=== PATIENT | female | born 1960 | race Caucasian/White ===

== ENCOUNTER → 2017-08-27 19:38 | Outpatient (CLI) | payer OTHER, SELFPAY ==
[2017-08-27] MEDS: Zolpidem Tartrate 5 MG Tablet PO (21:10)
== END ==
PROVIDERS: Family Provider Physician Assistant; PCP Physician Assistant; Visit Provider Internal Medicine Critical Care Medicine
DX: G47.33 Obstructive sleep apnea (adult) (pediatric) (principal)
CPT/HCPCS: 95811

== ENCOUNTER → 2017-09-09 09:46 | Outpatient (CLI) | payer OTHER, SELFPAY ==
--- NOTE | 2017-09-09 15:42 | PFTCOMP ---
COMPLETE PULMONARY FUNCTION TEST INTERPRETATION Brief HPI: Patient is a 57 year old female, currently under the care of Dr. Chin, who presents to [facility] for complete pulmonary function tests secondary to diagnosis of COPD. Respiratory therapist reports good effort and reproducible results. Interpretation: Forced expiration spirometry shows a severe large airways obstructive ventilatory defect with an FEV1 of 36 % predicted. There is no significant bronchodilator response by ATS criteria. Spirograms are of good quality and plateau slowly, indicating slowly emptying areas of the lungs. The respiratory flow volume loop shows decreased expiratory flow rates at all lung volumes consistent with airway obstruction. Lung volumes by body plethysmography show a normal total lung capacity at 0.55 L, 97% predicted. FRC and RV are elevated out of proportion. Lung volume measurements are consistent with air-trapping. Diffusion capacity by carbon monoxide is decreased at 49 % predicted. The airway resistance is elevated. No previous pulmonary function tests were available for review. Impression: Irreversible severe large airways obstructive ventilatory defect with a symmetric reduction diffusing capacity resulting in air trapping.
--- NOTE | 2017-09-09 15:46 | PFTCOMP_ITS ---
COMPLETE PULMONARY FUNCTION TEST INTERPRETATION Brief HPI: Patient is a 57 year old female, currently under the care of Dr. Chin , who presents to [facility] for complete pulmonary function tests secondary to diagnosis of COPD. Respiratory therapist reports good effort and reproducible results. Interpretation: Forced expiration spirometry shows a severe large airways obstructive ventilatory defect with an FEV1 of 36 % predicted. There is no significant bronchodilator response by ATS criteria. Spirograms are of good quality and plateau slowly, indicating slowly emptying areas of the lungs. The respiratory flow volume loop shows decreased expiratory flow rates at all lung volumes consistent with airway obstruction. Lung volumes by body plethysmography show a normal total lung capacity at 0.55 L , 97% predicted. FRC and RV are elevated out of proportion. Lung volume measurements are consistent with air-trapping. Diffusion capacity by carbon monoxide is decreased at 49 % predicted. The airway resistance is elevated. No previous pulmonary function tests were available for review. Impression: Irreversible severe large airways obstructive ventilatory defect with a symmetric reduction diffusing capacity resulting in air trapping.
== END ==
PROVIDERS: Family Provider Physician Assistant; PCP Physician Assistant; Visit Provider Internal Medicine Critical Care Medicine
DX: J44.9 Chronic obstructive pulmonary disease, unspecified (principal)
CPT/HCPCS: 94060; 94726; 94729

== ENCOUNTER → 2017-09-24 12:53 | Outpatient (CLI) | payer OTHER, SELFPAY ==
[2017-09-24 14:06] VITALS: PULSE 105; PULSE 109; PULSE 112; PULSE 123; PULSE 92; PULSE 96; PULSE 97; PULSE 98; O2SAT 84; O2SAT 87; O2SAT 90; O2SAT 91; O2SAT 94; O2SAT 96
--- NOTE | 2017-09-24 14:33 | WT_ITS ---
PSN 6 Minute Walk Test - 6 Minute Walk Test 6 Minute Walk Test: 6 Minute Walk Test PSN:6-Minute Walk Test Start: 09/24/17 13: 17 Freq: Status: Active Protocol: RESP.6MINW Document 09/24/17 14:06 HG (Rec: 09/24/17 14:08 HG [id number]) 6 Minute Walk Test Date Performed 09/24/17 Time Performed 12:50 Height 5 ft 3 in Weight: 113.398 kg Weight in Pounds 250.[address]: Aleksandra Estevez Assistive device used: None Pre-test Oxygen Delivery Method Room Air Pulse Ox (%) 91 Pulse Rate (60-100 beats/min) 92 Dyspnea José Miguel Scale (0-10) 1 Exertion José Miguel Scale (6-20) 6 1st minute Oxygen Delivery Method Room Air Pulse Ox (%) 91 Pulse Rate (60-100 beats/min) 97 2nd minute Oxygen Delivery Method Room Air Pulse Ox (%) 84 Pulse Rate (60-100 beats/min) 123 H 3rd minute Oxygen Flow Rate (L/min) (L/min) 2 Oxygen Delivery Method Nasal Cannula Pulse Ox (%) 90 Pulse Rate (60-100 beats/min) 109 H 4th minute Oxygen Flow Rate (L/min) (L/min) 2 Oxygen Delivery Method Nasal Cannula Pulse Ox (%) 87 Pulse Rate (60-100 beats/min) 112 H 5th minute Oxygen Flow Rate (L/min) (L/min) 3 Oxygen Delivery Method Nasal Cannula Pulse Ox (%) 87 Pulse Rate (60-100 beats/min) 105 H 6th minute Oxygen Flow Rate (L/min) (L/min) 4 Oxygen Delivery Method Nasal Cannula Pulse Ox (%) 94 Pulse Rate (60-100 beats/min) 98 Post-test Oxygen Flow Rate (L/min) (L/min) 4 Oxygen Delivery Method Nasal Cannula Pulse Ox (%) 96 Pulse Rate (60-100 beats/min) 96 Dyspnea José Miguel Scale (0-10) 2 Exertion José Miguel Scale (6-20) 8 Full Laps Walked 14 Partial Lap, Number of Tiles Walked 0 Total Distance Walked (ft) 826 - Interpretation Interpretation: The patient was noted to be 91% on room air. The patient was then ambulated for 6 minutes and traveled a total of 826 feet. The patient did require 4 L nasal cannula to maintain appropriate saturations throughout testing. These findings are consistent with a respiratory limitation exercise tolerance. - Recommendations Recommendations: The patient requires no supplemental oxygen at rest, but should be using 4 L nasal cannula oxygen with any exertion.
== END ==
PROVIDERS: Family Provider Physician Assistant; PCP Physician Assistant; Visit Provider Nurse Practitioner Acute Care
DX: R09.02 Hypoxemia (principal)
CPT/HCPCS: 94618

== ENCOUNTER → 2017-10-28 12:17 | Outpatient (CLI) | payer OTHER, SELFPAY ==
[2017-10-28 12:57] VITALS: PULSE 108; PULSE 109; PULSE 117; PULSE 120; PULSE 79; PULSE 84; PULSE 90; PULSE 96; O2SAT 84; O2SAT 86; O2SAT 87; O2SAT 90; O2SAT 94; O2SAT 99
--- NOTE | 2017-10-28 13:03 | CPS ---
PATIENT ARRIVED ON 4LPM OXYGEN. PLACED ON ROOM AIR AND RESTED PRIOR TO BEGINNING TEST. AT 2MIN ON RA, SPO2 84%, INCREASED TO 2LPM, REST TAKEN AT 4 MIN ON 2LPM, SPO2 87%, INCREASED TO 3LPM JUST PRIOR TO 6 MIN ON 3LPM, SPO2 86%. REST TAKEN, INCREASED TO 4LPM, SPO2 INCREASED TO 94% WITH 2 MORE LAPS WALKED.
--- NOTE | 2017-10-29 11:02 | WT_ITS ---
PSN 6 Minute Walk Test - 6 Minute Walk Test 6 Minute Walk Test: 6 Minute Walk Test PSN:6-Minute Walk Test Start: 10/28/17 12: 57 Freq: Status: Active Protocol: RESP.6MINW Document 10/28/17 12:57 [facility] (Rec: 10/28/17 13:07 [facility] [id number]) 6 Minute Walk Test Date Performed 10/28/17 Time Performed 12:30 Height 5 ft 3 in Weight: 240 lb Weight in Pounds 240.[address]: Aleksandra Estevez Assistive device used: None Pre-test Oxygen Delivery Method Room Air Pulse Ox (%) 94 Pulse Rate (60-100 beats/min) 84 Dyspnea José Miguel Scale (0-10) 0 1st minute Oxygen Delivery Method Room Air Pulse Ox (%) 90 Pulse Rate (60-100 beats/min) 90 Dyspnea José Miguel Scale (0-10) 1 2nd minute Oxygen Delivery Method Room Air Pulse Ox (%) 84 Pulse Rate (60-100 beats/min) 96 Dyspnea José Miguel Scale (0-10) 3 Number of Rests Taken 1 Reported Symptoms Increased Work of Breathing 3rd minute Oxygen Flow Rate (L/min) (L/min) 2 Oxygen Delivery Method Nasal Cannula Pulse Ox (%) 90 Pulse Rate (60-100 beats/min) 108 H Dyspnea José Miguel Scale (0-10) 2 4th minute Oxygen Flow Rate (L/min) (L/min) 2 Oxygen Delivery Method Nasal Cannula Pulse Ox (%) 87 Pulse Rate (60-100 beats/min) 109 H Dyspnea José Miguel Scale (0-10) 2 5th minute Oxygen Flow Rate (L/min) (L/min) 3 Oxygen Delivery Method Nasal Cannula Pulse Ox (%) 90 Pulse Rate (60-100 beats/min) 117 H Dyspnea José Miguel Scale (0-10) 3 Reported Symptoms Increased Work of Breathing 6th minute Oxygen Flow Rate (L/min) (L/min) 3 Oxygen Delivery Method Nasal Cannula Pulse Ox (%) 86 Pulse Rate (60-100 beats/min) 120 H Dyspnea José Miguel Scale (0-10) 3 Number of Rests Taken 1 Reported Symptoms Increased Work of Breathing Post-test Oxygen Flow Rate (L/min) (L/min) 4 Oxygen Delivery Method Nasal Cannula Pulse Ox (%) 99 Pulse Rate (60-100 beats/min) 79 Dyspnea José Miguel Scale (0-10) 0 Full Laps Walked 13 Partial Lap, Number of Tiles Walked 51 Total Distance Walked (ft) 818 10/28/17 13:03 Cardiopulmonary Services by Lis Carmona PATIENT ARRIVED ON 4LPM OXYGEN. PLACED ON ROOM AIR AND RESTED PRIOR TO BEGINNING TEST. AT 2MIN ON RA, SPO2 84%, INCREASED TO 2LPM, REST TAKEN AT 4 MIN ON 2LPM, SPO2 87%, INCREASED TO 3LPM JUST PRIOR TO 6 MIN ON 3LPM, SPO2 86%. REST TAKEN, INCREASED TO 4LPM, SPO2 INCREASED TO 94% WITH 2 MORE LAPS WALKED. Initialized on 10/28/17 13:03 - END OF NOTE - Interpretation Interpretation: The patient ambulated 818 feet over the course of 6 minutes beginning on room air without assistive devices or breaks. Pretesting oxygen saturation was noted to be 94%. Throughout testing, the patient desaturated a number of times to less than 88%. The patient was placed initially on 2 L/min of supplemental oxygen, which required an upward titration to 4 L/min to maintain oxygen saturations at or above 88% throughout the remainder of the test. The patient did develop physiologic tachycardia with exertion. - Recommendations Recommendations: There is no need for supplemental oxygen at rest. However, 4 L/min of supplemental oxygen should be utilized with exertion.
== END ==
PROVIDERS: Family Provider Physician Assistant; PCP Physician Assistant; Visit Provider Nurse Practitioner Acute Care
DX: R00.0 Tachycardia, unspecified (principal)
CPT/HCPCS: 94618

== ENCOUNTER → 2017-12-21 12:16 | Outpatient (CLI) | payer MEDICAID, SELFPAY ==
[2017-12-21 11:31] VITALS: PULSE 102; PULSE 107; PULSE 108; PULSE 111; PULSE 114; PULSE 115; O2SAT 85; O2SAT 86; O2SAT 90; O2SAT 92; O2SAT 93; O2SAT 94
--- NOTE | 2017-12-21 12:16 | DT_ITS ---
This patient was seen during an EMR downtime December 20, 2017 - December 27, 2017. This patient may have a combination of paper and electronic documentation or all paper documentation. All documentation is viewable within the e-chart portion of [facility] for each patient visit.
--- NOTE | 2017-12-27 11:24 | PCM.PSN.6M ---
PSN 6 Minute Walk Test - Interpretation Interpretation: The patient ambulated over the course of 6 minutes beginning on room air without assistive devices or breaks. Pretesting oxygen saturation was noted to be 85% on room air. 2 L/min of supplemental oxygen was applied prior to testing. With ambulation, the reuben oxygen saturation was 86%. The supplemental flow rate was increased to 3 L/min, and the patient was able to complete the remainder of the test while maintaining oxygen saturations at or above 88%. The patient did develop physiologic tachycardia with exertion. Testing is indicative of a significant exertional oxygen desaturation. - Recommendations Recommendations: 2 L/min of supplemental oxygen should be utilized at rest and 3 L/min should be utilized with exertion.
--- NOTE | 2017-12-27 11:41 | CPS ---
Testing done by Yevgeniy Lo RRT. Patient wears 3 lpm at home, O2 provided by [employer].
== END ==
PROVIDERS: Family Provider Physician Assistant; PCP Physician Assistant; Visit Provider Nurse Practitioner Acute Care
DX: R06.02 Shortness of breath (principal)
CPT/HCPCS: 94618